=== PATIENT | male | born 2000 | race Hispanic/Latino ===

== ENCOUNTER 2018-12-13 18:23 | Emergency (ER) | payer MEDICAID, OTHER ==
[2018-12-13] MEDS ORDERED: CEFTRIAXONE SODIUM 1 GM ONE (19:33)
[2018-12-13] MEDS ORDERED: KETOROLAC TROMETHAMINE 60 MG/2 ML VIAL ONE (19:33)
== END 2018-12-13 20:19 ==
LOC: EDH 18:23
DX: H66.92 Otitis media, unspecified, left ear (principal); Z72.0 Tobacco use
CPT/HCPCS: 96372 ×2; 99284; J0696; J1885